=== PATIENT | male | born 1955 | race Two or more races ===

== ENCOUNTER 2017-11-16 07:00 | Day surgery (SDC) | payer OTHER ==
[~2017-11-16] VITALS: Ht 175.3 cm; Wt 122.5 kg
[~2017-11-16 07:00] MED LIST: DIOVAN HCT 3201 EAC1 PO
== END 2017-11-17 08:00 | disposition home or self-care (01) ==
LOC: CIR.AMB 07:00 → SURH 07:00 → O/R 07:00 → SURH 08:15 → O/R 08:44 → EDSTATUS 10:00 → SURH 10:00 → O/R 14:25 → SURH 14:25 → CIR.AMB 11-17 08:00 → O/R 11-17 11:48 → SURH 11-17 11:48
DX: D12.7 Benign neoplasm of rectosigmoid junction (principal); I10 Essential (primary) hypertension